=== PATIENT | female | born 1995 ===

== ENCOUNTER 2018-03-14 12:36 | Emergency (ER) | payer MEDICAID ==
[2018-03-14 12:36] VITALS: BMI 34.7
[2018-03-14 13:09] VITALS: TEMP 98.2
--- NOTE | 2018-03-14 14:19 | C.PDOC ---
History Of Present Illness <Yanick Hart - Last Filed: 03/14/18 15:38> <Caron Kumari DO - Last Filed: 03/14/18 15:51> Patient is a 22 year old female who denies PMHx who presents to the ED with complaints of right lower back pain since Tuesday. Patient states that she stands all day for work and that back pain began after bending forward and then standing upright again. Patient states that Aleve and Advil have helped the pain. Patient states she did not take medication today for back pain because she does not want to just keep taking medication for the pain without knowing why she has the pain. Patient does not have a PMD. Patient denies radiation of pain to groin, denies dysuria. (Caron Kumari DO) <Yanick Hart - Last Filed: 03/14/18 15:38> History Per: Patient Onset/Duration Of Symptoms: Days Current Symptoms Are (Timing): Still Present Quality Of Discomfort: Sharp Pain Scale Rating Of: 6 Previous Symptoms: Back Pain. denies: Chronic Pain, Prior Injury Associated Symptoms: denies: Incontinence, New Weakness, New Numbness Exacerbating Factor(s): Turning <Caron Kumari DO - Last Filed: 03/14/18 15:51> Time Seen by Provider: 03/14/18 14:12 Chief Complaint (Nursing): Back Pain Past Medical History - Medical History PMH: Denies: Depression, Chronic Kidney Disease - Social History Hx Tobacco Use: No Hx Alcohol Use: No Hx Substance Use: No - Immunization History Hx Tetanus Toxoid Vaccination: No Hx Influenza Vaccination: No Hx Pneumococcal Vaccination: No <Yanick Hart - Last Filed: 03/14/18 15:38> - Medical History PMH: No Chronic Diseases Family History: States: Unknown Family Hx - Social History Hx Tobacco Use: No Hx Alcohol Use: No Hx Substance Use: No <Caron Kumari DO - Last Filed: 03/14/18 15:51> Vital Signs: Last Vital Signs Temp 98.2 F 03/14/18 13:06 Pulse 74 03/14/18 13:06 Resp 20 03/14/18 13:06 BP 116/77 03/14/18 13:06 Pulse Ox 100 03/14/18 15:38 - [facility] Procedures INJECT/INFUSE ELECTROLYT (07/22/15) INJECT/INFUSE NEC (04/12/15) Review Of Systems Constitutional: Negative for: Fever, Chills Eyes: Negative for: Pain, Vision Change ENT: Negative for: Ear Pain, Ear Discharge, Nose Pain, Nose Discharge Cardiovascular: Negative for: Chest Pain, Palpitations Respiratory: Negative for: Cough, Shortness of Breath Gastrointestinal: Negative for: Nausea, Vomiting, Abdominal Pain, Diarrhea, Constipation Genitourinary: Negative for: Dysuria, Frequency, Incontinence Musculoskeletal: Positive for: Back Pain. Negative for: Leg Pain Neurological: Negative for: Weakness, Numbness <Caron Kumari DO - Last Filed: 03/14/18 15:51> Physical Exam - Physical Exam Appears: Non-toxic, No Acute Distress Skin: Warm, Dry Head: Atraumatic, Normacephalic Eye(s): bilateral: EOMI Nose: Normal, No Discharge Oral Mucosa: Moist Tongue: Normal Appearing Lips: Normal Appearing, No Swelling Throat: Normal, No Erythema Neck: Normal ROM, No Midline Cervical Tenderness, No Paracervical Tenderness Lymphatic: No Adenopathy Chest: Symmetrical Cardiovascular: Rhythm Regular Respiratory: Normal Breath Sounds Gastrointestinal/Abdominal: Normal Exam, Bowel Sounds, Soft, No Tenderness Back: No CVA Tenderness, Decreased ROM (turning to right exacerbates symptoms), Muscle Spasm, Paraspinal Tenderness (L3-L4 on right) Extremity: Normal ROM (lower extremities), No Tenderness, No Pedal Edema, No Calf Tenderness, No Swelling Neurological/Psych: Oriented x3, Normal Speech <Caron Kumari DO - Last Filed: 03/14/18 15:51> ED Course And Treatment O2 Sat by Pulse Oximetry: 100 <Yanick Hart - Last Filed: 03/14/18 15:38> Progress Note: Patient states pain 3/10 after Flexeril and Motrin. <Caron Kumari DO - Last Filed: 03/14/18 15:51> Medical Decision Making <Yanick Hart - Last Filed: 03/14/18 15:38> <Caron Kumari DO - Last Filed: 03/14/18 15:51> Medical Decision Making: low back strain no UTI/ (Yanick Hart) Disposition Doctor Will See Patient In The: Office Counseled Patient/Family Regarding: Studies Performed, Diagnosis - Disposition Disposition Time: 15:38 <Yanick Hart - Last Filed: 03/14/18 15:38> Counseled Patient/Family Regarding: Diagnosis, Need For Followup <Caron Kumari DO - Last Filed: 03/14/18 15:51> - Disposition Referrals: [facility] [Outside] Disposition: HOME/ ROUTINE Condition: GOOD Additional Instructions: ice packs to the lower back area 1/2 hour per hour motrin 400-600 mg every 6 hours as needed no heavy lifting for 1 week Prescriptions: Cyclobenzaprine [Flexeril] 5 mg PO HS PRN #5 tab PRN Reason: Muscle Spasm Ibuprofen [Motrin Tab] 600 mg PO TID PRN #6 tab PRN Reason: Pain, Moderate (4-7) Instructions: Low Back Pain (DC), Muscle Spasms (DC) Forms: [facility] (Irish), [facility] (Turkish), Gen Discharge Inst Turkish - Clinical Impression Clinical Impression: Low back strain, Muscle spasm of back - 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 LUIS ALBERTO has examined the patient and agrees with the treatment plan. <Caron Kumari DO - Last Filed: 03/14/18 15:51>
[2018-03-14 14:59] LABS: SQUAMOUS EPITHIAL 22 /hpf (0-5); URINE BILIRUBIN NEGATIVE (NEGATIVE); URINE BLOOD NEGATIVE (NEGATIVE); URINE CLARITY Hazy (Clear); URINE COLOR Yellow (YELLOW); URINE GLUCOSE (UA) NORMAL (Normal); URINE LEUKOCYTE ESTERASE NEG Leu/uL (Negative); URINE PROTEIN 1+ mg/dL (NEGATIVE)
[2018-03-14 15:57] VITALS: BP 116/72; PULSE 68; RESP 18; O2SAT 96
== END 2018-03-14 15:57 | disposition home or self-care (01) ==
LOC: C.ER 12:36
DX: S39.012A Strain of muscle, fascia and tendon of lower back, initial encounter (principal); X50.1XXA Overexertion from prolonged static or awkward postures, initial encounter; Y99.0 Civilian activity done for income or pay; M62.830 Muscle spasm of back